=== PATIENT | female | born 1990 | race Caucasian/White ===

== ENCOUNTER → 2018-12-08 16:42 | Outpatient (CLI) | payer BC, SELFPAY ==
[2018-12-08 17:12] LABS: Add Manual Diff / Slide Review NO; Basophils Absolute Auto 100 /uL (0-100); Basophils Percent Auto 0.8 % (0-2); Eosinophils Absolute Auto 100 /uL (0-450); Eosinophils Percent Auto 1.4 % (2-4); Hematocrit 39.7 % (36-46); Hemoglobin 13.1 g/dL (12.0-16.0); Lymphocytes Absolute Auto 2400 /uL (1100-4500); Lymphocytes Percent Auto 22.8 % (25-40); Mean Corpuscular HGB Conc 33.1 % (30-36); Mean Corpuscular Hemoglobin 30.8 PG (26-34); Mean Corpuscular Volume 93.2 fL (80-100); Monocytes Absolute Auto 600 /uL (0-900); Monocytes Percent Auto 6.2 % (3-14); Neutrophils Absolute Auto 7100 /uL (1500-7000); Neutrophils Percent Auto 68.8 % (50-75); Platelet Count 258 X10^3/uL (150-400); Red Blood Cell Count 4.26 X10^6/uL (4.0-5.2); Red Cell Distribution Width 12.6 % (11.6-14.8); White Blood Cell Count 10.3 X10^3/uL (4.5-11.0)
[2018-12-08 17:19] LABS: Appearance Urine UA CLEAR; Bilirubin Urine UA NEGATIVE (NEGATIVE); Color Urine UA YELLOW; Glucose Urine UA NEGATIVE (Negative); Ketones Urine UA NEGATIVE (NEGATIVE); Leukocyte Esterase Urine UA NEGATIVE (NEGATIVE); Nitrite Urine UA NEGATIVE (Negative); Occult Blood Urine UA TRACE-LYSED (Negative); Protein Urine UA NEGATIVE (Negative); Specific Gravity Urine UA <=1.005 (1.000-1.035); Urobilinogen Urine UA 0.2 E.U./dL (0.2)
[2018-12-08 18:05] LABS: Hepatitis B Surface Antigen NEGATIVE s/c (NEGATIVE); Rubella Antibody IgG 10.4 IU/mL (>15)
[2018-12-08 18:27] LABS: HIV 1 and 2 Antibody NEGATIVE (NEGATIVE); Hep C Virus Ab w/Reflex Quant NEGATIVE s/c (NEGATIVE)
[2018-12-10 21:59] LABS: RPR Screen Nonreactive (Nonreactive)
== END ==
PROVIDERS: Visit Provider Specialist
DX: Z34.91 Encounter for supervision of normal pregnancy, unspecified, first trimester (principal)
CPT/HCPCS: 36415; 80055; 81003; 86703; 86787; 86803; 86850; 86900; 86901; 87086

== ENCOUNTER → 2019-10-19 16:16 | Outpatient (CLI) | payer BC, SELFPAY ==
[2019-10-19 16:37] LABS: Add Manual Diff / Slide Review NO; Appearance Urine UA CLEAR; Basophils Absolute Auto 100 /uL (0-100); Bilirubin Urine UA NEGATIVE (NEGATIVE); Color Urine UA YELLOW; Eosinophils Absolute Auto 200 /uL (0-450); Eosinophils Percent Auto 1.9 % (2-4); Glucose Urine UA NEGATIVE (Negative); Hematocrit 39.7 % (36-46); Hemoglobin 13.2 g/dL (12.0-16.0); Ketones Urine UA NEGATIVE (NEGATIVE); Leukocyte Esterase Urine UA 2+ (NEGATIVE); Lymphocytes Absolute Auto 2200 /uL (1100-4500); Lymphocytes Percent Auto 25.4 % (25-40); Mean Corpuscular HGB Conc 33.3 % (30-36); Mean Corpuscular Hemoglobin 30.9 PG (26-34); Mean Corpuscular Volume 92.7 fL (80-100); Monocytes Absolute Auto 600 /uL (0-900); Monocytes Percent Auto 6.3 % (3-14); Neutrophils Absolute Auto 5700 /uL (1500-7000); Neutrophils Percent Auto 65.4 % (50-75); Nitrite Urine UA NEGATIVE (Negative); Occult Blood Urine UA NEGATIVE (Negative); Platelet Count 256 X10^3/uL (150-400); Protein Urine UA NEGATIVE (Negative); Red Blood Cell Count 4.28 X10^6/uL (4.0-5.2); Red Cell Distribution Width 12.6 % (11.6-14.8); Specific Gravity Urine UA <=1.005 (1.000-1.035); Urobilinogen Urine UA 0.2 E.U./dL (0.2); White Blood Cell Count 8.8 X10^3/uL (4.5-11.0)
[2019-10-19 18:33] LABS: Bacteria Urine Few (2-10); Hyaline Casts Urine 5-10/LPF; RBC Urine 0-1/HPF (0-5/HPF); Squamous Epithelial Cell Urine 5-10 /HPF (0-5/HPF); WBC Urine 5-10/HPF (0-5/HPF)
[2019-10-19 20:43] LABS: Hepatitis B Surface Antigen NEGATIVE s/c (NEGATIVE); Rubella Antibody IgG 9.6 IU/mL (>15)
[2019-10-19 20:48] LABS: HIV 1 & 2 Ab/Ag 4th Gen Combo NEGATIVE (NEGATIVE); Hep C Virus Ab w/Reflex Quant NEGATIVE s/c (NEGATIVE)
[2019-10-21 20:22] LABS: RPR Screen Nonreactive (Nonreactive)
== END ==
PROVIDERS: Visit Provider Obstetrics & Gynecology
DX: Z34.01 Encounter for supervision of normal first pregnancy, first trimester (principal)
CPT/HCPCS: 36415; 80055; 81003; 81015; 86787; 86803; 86850; 86900; 86901; 87086; 87389

== ENCOUNTER → 2019-11-18 12:22 | Outpatient (CLI) | payer BC, SELFPAY ==
--- NOTE | 2019-11-18 12:23 | DI.US.S_ITS ---
ULTRASOUND OF LEFT BREAST AND AXILLA: 11/18/2019 CLINICAL: Palpable left axilla lump. No prior exams were available for comparison. Color flow ultrasound of the left axilla was performed. Singh scale images of the real-time examination were reviewed. Targeted ultrasound of the left axilla at the site of patient's reported focal palpable concern demonstrates an indistinct area of heterogenously hypoechoic tissue in the left axilla just below the skin surface which demonstrates mild vascularity on Doppler imaging. The area is difficult to measure but measures approximately 2.5 cm in greatest approximate diameter. There is no discrete mass or abscess identified. Targeted ultrasound of the left axilla also demonstrates multiple benign-appearing left axillary lymph nodes which demonstrate no suspicious cortical thickening and preserved fatty zoie. IMPRESSION: PROBABLY BENIGN Targeted ultrasound of the left axilla at the site of patient's reported focal palpable concern demonstrates an indistinct area of heterogenously hypoechoic tissue in the left axilla just below the skin surface which is most compatible with accessory axillary fibroglandular tissue. There is no discrete mass or abscess identified. There is no left axillary lymphadenopathy. A follow-up ultrasound in 3 months is recommended to demonstrate stability. Clinical follow-up is also recommended for further evaluation and management. This exam was interpreted at Station ID: [id number]. Electronically Signed By: Joe Cunha M.D. ecl/:11/18/2019 13:05:20 letter sent: Followup Recommended Ultrasound BI-RADS: 3 Probably benign
== END ==
PROVIDERS: Visit Provider Obstetrics & Gynecology
DX: R22.32 Localized swelling, mass and lump, left upper limb (principal)
CPT/HCPCS: 76882

== ENCOUNTER → 2019-12-09 15:33 | Outpatient (CLI) | payer BC, SELFPAY ==
[2019-12-13 18:15] LABS: AFP, Serum 38.1 ng/mL; Calc Gestational Age 15.1; Est Date Determined by Ultrasound; Maternal Weight 155 lbs; Prev Pregnancies Down Syndrome No
== END ==
PROVIDERS: Visit Provider Obstetrics & Gynecology
DX: Z34.82 Encounter for supervision of other normal pregnancy, second trimester (principal)
CPT/HCPCS: 82105